=== PATIENT | male | born 1970 | race Caucasian/White ===

== ENCOUNTER → 2016-10-07 | Emergency (ER) | payer BC, OTHER ==
[~2016-10-07] VITALS: Ht 175.3 cm; Wt 76.0 kg
[~2016-10-07] MED LIST: DIAZ-90 PO; DIAZEPAM 5 MG/ML SYG IM ONE; KETOROLAC 15 MG INJ IM STA; NAPR-260 PO
[2016-10-07 21:05] VITALS: Ht 175.3 cm; Wt 76.0 kg
[2016-10-07 22:04] LABS: URINE BLOOD (Dip) POC Negative (NEGATIVE)
--- NOTE | 2016-10-07 23:31 | ERD ---
ER Documentation Chief Complaint Date/Time DATE: 10/07/16 TIME: 23:28 Chief Complaint INCREASE LT LOWER BACK PAIN RADIATING TO LT LEG X2 WEEKS HPI This pleasant 45-year-old male patient presents to emergency department with a week history of low back. Patient reports history of 3 bulging disks, recent manual labor lifting boxes and moving objects last week resulted in spasm. Patient reports treating conservatively with rest, ice and ibuprofen states she usually symptoms improve after 3-4 days. Patient reports now pain is worse than it was 5 days ago he is having pain radiating down his left lumbar to his left thigh. Patient denies any alteration in bowel or bladder, is ambulating gingerly with limp, pain is worse with movement, twisting, rising from a seated position. Patient reports difficulty finding position of comfort for sleep. ROS All systems reviewed and are negative except as per history of present illness. Allergies Allergies: Coded Allergies: No Known Drug Allergies (Verified Allergy, Unknown, 10/07/16) PMhx/Soc Medical and Surgical Hx: pt denies Medical Hx, pt denies Surgical Hx Hx Alcohol Use: No Hx Substance Use: No Hx Tobacco Use: No Smoking Status: Never smoker Physical Exam Vitals Vital Signs Date Time Temp Pulse Resp B/P Pulse Ox O2 Delivery O2 Flow Rate FiO2 10/07/16 21:05 97.6 86 20 128/79 99 Vitals stable, triage notes reviewed Physical Exam Const: [] Head: Atraumatic Eyes: Normal Conjunctiva ENT: Normal External Ears, Nose and Mouth. Neck: Full range of motion..~ No meningismus. Resp: Clear to auscultation bilaterally Cardio: Regular rate and rhythm, no murmurs Abd: Soft, non tender, non distended. Normal bowel sounds Skin: No petechiae or rashes Back: No midline or flank tenderness Ext: No cyanosis, or edema Neur: Awake and alert Psych: Normal Mood and Affect Results 24 hrs Laboratory Tests Test 10/07/16 22:08 Bedside Urine pH (LAB) 5.5 Bedside Urine Protein (LAB) Negative Bedside Urine Glucose (UA) Negative Bedside Urine Ketones (LAB) Negative Bedside Urine Blood Negative Bedside Urine Nitrite (LAB) Negative Bedside Urine Leukocyte Esterase (L Negative Current Medications Medications (Trade) Dose Ordered Sig/Yumiko Route PRN Reason Start Time Stop Time Status Last Admin Dose Admin Ketorolac Tromethamine (Toradol) 15 mg ONCE STAT IM 10/07/16 21:50 10/07/16 21:54 DC 10/07/16 22:05 Diazepam (Valium) 5 mg ONCE ONCE IM 10/07/16 22:00 10/07/16 22:01 DC 10/07/16 22:05 Urinalysis negative for microscopic hematuria, nitrates, or leukocytosis- unremarkable urinalysis Procedures/MDM PROCEDURE: Lumbar spine. CLINICAL INDICATION: Low back pain. TECHNIQUE: Three views including AP, lateral and cone-down lateral view of the lumbar spine were obtained. COMPARISON: None. FINDINGS: There is no acute fracture or subluxation. Lumbar vertebral body heights and alignment are within normal limits. Intervertebral disk spaces are within normal limits. The posterior elements are unremarkable. An angled screw is seen within the left pelvis. IMPRESSION: No evidence of fracture or subluxation. .Colin Pope MD, MD Date Time Electronically viewed and signed by .Colin Pope MD, on 10/07/2016 23:50 This 45-year-old male patient presents to the emergency department for evaluation of back pain. Symptoms started over a week ago after manual labor. History of bulging disc unsure which vertebrae. Patient denies pain is chronic , reports when he gets back pain usually improved with rest, ice and ibuprofen. Patient reports symptoms this time are worse than they were 5 days ago pain is radiating down left leg. Low suspicion for cauda equina,spinal mass compression fracture or other pathologic fracture, patient pain treated with Toradol, Valium, lumbar series documents no evidence of subluxation, patient will be discharged home with Naprosyn 500 mg twice daily 10 days, Valium 1 tab p.o. every 8 hours as needed myopathy follow-up with primary care physician for possible referral for physical therapy, rest, ice, return to emergency department for bladder incontinence, stool incontinence, difficulty ambulating or moving lower extremities. I feel the patient is stable for discharge at this time. I have discussed results, examination findings, the treatment plan with the patient and family present prior to discharge. Indications for emergent reevaluation, side effects of medication were also discussed. All questions were answered. Patient verbalizes understanding and agrees with plan of care. Departure Diagnosis: Primary Impression: Lumbar back pain Chronicity: acute Back pain laterality: left Sciatica presence: with sciatica Sciatica laterality: sciatica of left side Qualified Code: M54.42 - Acute left-sided low back pain with left-sided sciatica Condition: Good Patient Instructions: Back Pain (Acute Or Chronic) Additional Instructions: Thank you for for coming to [facility] for your care today. Please ask your nurse or provider if you have questions about your care today and do not leave until all your questions have been answered. Please use any medications given as directed and follow-up with your doctor (or the doctor you were referred to) in the next 2-3 days. If you do not have a primary care doctor you may follow up at the [facility] (listed below). You may also use motrin and tylenol as needed for fever and/or pain unless instructed otherwise by your provider or nurse. Indications for more urgent follow-up have been discussed, but you may return to the Emergency Department at ANY time for any worrisome or worsening symptoms. If you have abdominal pain, please know that no test or exam you received is perfect and you should follow up within 8 hours for continued pain. If you had any imaging studies today, such as an X-Ray or CT Scan, these studies will be reviewed later by a radiologist. You will be called if there are important findings that were not identified today, so make sure the contact information you provided at registration is correct. If you received any narcotic pain control medicine today, such as Vicodin, Morphine or Dilaudid, your coordination and judgment may be affected for a number of hours. Please do not drive or operate heavy machinery, and you may want someone to assist you at home. If you were given a prescription for narcotic medication, be aware that it is very addictive- use sparingly and only if necessary. DEANA DAVISON Oct 07, 2016 23:31
--- NOTE | 2016-10-07 23:51 | RADRPT ---
PROCEDURE: Lumbar spine. CLINICAL INDICATION: Low back pain. TECHNIQUE: Three views including AP, lateral and cone-down lateral view of the lumbar spine were obtained. COMPARISON: None. FINDINGS: There is no acute fracture or subluxation. Lumbar vertebral body heights and alignment are within n ormal limits. Intervertebral disk spaces are within normal limits. The posterior elements are unre markable. An angled screw is seen within the left pelvis. IMPRESSION: No evidence of fracture or subluxation. .Colin Pope MD, Date Time Electronically viewed and signed by .Colin Pope MD, MD on 10/07/2016 23:50 .T/
[2016-10-08 00:13] VITALS: BP 108/71; PULSE 73; RESP 20; TEMP 97.6
== END | disposition home or self-care (01) ==
LOC: FTE 21:00
DX: M54.42 Lumbago with sciatica, left side (principal)
CPT/HCPCS: 72100; 81003; 96372; 99284; J1885; J3360

== ENCOUNTER 2018-10-07 20:31 | Inpatient (IN) | payer BC ==
[~2018-10-07] VITALS: Ht 175.3 cm; Wt 75.0 kg
[~2018-10-07 20:31] MED LIST changes: -DIAZ-90 PO; +DIAZ5TAB PO; -DIAZEPAM 5 MG/ML SYG IM ONE; -KETOROLAC 15 MG INJ IM STA; -NAPR-260 PO; +NAPR-985 PO
[2018-10-07] MEDS ORDERED: SOD CHLORIDE 0.9% 1,000 ML IV STA (22:10)
--- NOTE | 2018-10-07 22:29 | ERD ---
ER Documentation Chief Complaint Chief Complaint C/O GENERALIZED AP X3 DAYS WORSE TO RLQ, DIARRHEA X2 DAYS HPI 47-year-old male presenting with complaints of right lower quadrant abdominal pain. For the past 3 days, he has had generalized "tightness" of his entire abdomen that has been constant, with no alleviating factors. Worse with eating. No associated vomiting but he has had some associated nausea and chills. He has had loose bowel movements, about 2 a day. Today he has not had any bowel movements. No dysuria or hematuria. Today he was concerned because when he was pressing on his abdomen, the pain was worse in the right lower quadrant. He was advised to come to the ER by a friend ROS All systems reviewed and are negative except as per history of present illness. Medications Home Meds Active Scripts Diazepam* (Valium*) 5 Mg Tablet, 5 MG PO Q8, #10 TAB Prov:SAMAN,DEANA 10/08/16 Naproxen* (Naprosyn*) 500 Mg Tablet, 500 MG PO BID PRN for PAIN AND/OR INFLAMMATION, #30 TAB Prov:SAMAN,DEANA 10/08/16 Allergies Allergies: Coded Allergies: No Known Drug Allergies (Verified Allergy, Unknown, 10/07/16) PMhx/Soc Medical and Surgical Hx: pt denies Medical Hx, pt denies Surgical Hx History of Surgery: No Anesthesia Reaction: No Hx Neurological Disorder: No Hx Respiratory Disorders: No Hx Cardiac Disorders: No Hx Psychiatric Problems: No Hx Miscellaneous Medical Probl: No Hx Alcohol Use: No Hx Substance Use: No Hx Tobacco Use: No Smoking Status: Never smoker FmHx Father has prostate cancer Family History: No diabetes Physical Exam Vitals Vital Signs Date Temp Pulse Resp B/P (MAP) Pulse Ox O2 O2 Flow FiO2 Time Delivery Rate 10/08/18 98.5 68 16 104/64 100 Room Air 01:44 (77) 10/07/18 97.8 73 20 124/58 100 21:20 (80) Physical Exam Const: No acute distress Head: Atraumatic Eyes: Normal Conjunctiva ENT: Normal External Ears, Nose and Mouth. Neck: Full range of motion. No meningismus. Resp: Clear to auscultation bilaterally Cardio: Regular rate and rhythm, no murmurs Abd: Soft, diffuse discomfort with palpation. Tenderness to deep palpation in the right lower quadrant at McBurney's point with no rebound or guarding. non distended. Normal bowel sounds Skin: No petechiae or rashes Back: No midline or flank tenderness Ext: No cyanosis, or edema Neur: Awake and alert Psych: Normal Mood and Affect Result Diagram: 10/07/18215410/07/182154 Results 24 hrs Laboratory Tests Test 10/07/18 21:55 White Blood Count 6.0 10^3/ul Red Blood Count 4.38 10^6/ul Hemoglobin 12.4 g/dl Hematocrit 37.3 % Mean Corpuscular Volume 85.2 fl Mean Corpuscular Hemoglobin 28.3 pg Mean Corpuscular Hemoglobin Concent 33.2 g/dl Red Cell Distribution Width 13.4 % Platelet Count 298 10^3/UL Mean Platelet Volume 12.1 fl Immature Granulocytes % 0.200 % Neutrophils % 36.6 % Lymphocytes % 49.0 % Monocytes % 11.1 % Eosinophils % 2.3 % Basophils % 0.8 % Nucleated Red Blood Cells % 0.0 /100WBC Immature Granulocytes # 0.010 10^3/ul Neutrophils # 2.2 10^3/ul Lymphocytes # 3.0 10^3/ul Monocytes # 0.7 10^3/ul Eosinophils # 0.1 10^3/ul Basophils # 0.1 10^3/ul Nucleated Red Blood Cells # 0.0 10^3/ul Sodium Level 142 mmol/L Potassium Level 4.5 mmol/L Chloride Level 100 mmol/L Carbon Dioxide Level 33 mmol/L Anion Gap 9 Blood Urea Nitrogen 14 mg/dl Creatinine 1.05 mg/dl Est Glomerular Filtrat Rate mL/min > 60 mL/min Glucose Level 89 mg/dl Calcium Level 9.5 mg/dl Total Bilirubin 0.6 mg/dl Direct Bilirubin 0.00 mg/dl Indirect Bilirubin 0.6 mg/dl Aspartate Amino Transf (AST/SGOT) 35 IU/L Alanine Aminotransferase (ALT/SGPT) 24 IU/L Alkaline Phosphatase 59 IU/L Total Protein 8.2 g/dl Albumin 4.6 g/dl Globulin 3.60 g/dl Albumin/Globulin Ratio 1.27 Lipase 107 U/L Current Medications Medications Dose Sig/Yumiko Start Time Status Last (Trade) Ordered Route PRN Stop Time Admin Dose Reason Admin Sodium 1,000 ml @ Q1H STAT 10/07/18 DC 10/07/18 Chloride 1,000 mls/hr IV 22:10 10/07/18 22:12 23:09 Simethicone 160 mg ONCE ONCE 10/07/18 DC 10/07/18 (Mylicon) PO 22:30 10/07/18 23:15 22:31 Piperacillin 100 ml @ ONCE ONCE 10/08/18 DC 10/08/18 Sod/ 200 mls/hr IVPB 01:00 10/08/18 01:08 Tazobactam 01:29 Sod Ondansetron 4 mg BRIDGE ORDER 10/08/18 HCl (Zofran PRN IV 01:30 10/09/18 Inj) NAUSEA/VOMITI 01:29 NG 650 mg ER BRIDGE 10/08/18 Acetaminophen PRN PO 01:30 10/09/18 (Tylenol .MILD PAIN 01:29 Tab) 1-3 OR TEMP 1,000 ml @ Q10H IV 10/08/18 Dextrose/Sodi 100 mls/hr 01:06 um Chloride IV Flush 3 ml PER 10/08/18 (NS 3 ml) PROTOCOL IV 01:30 Ondansetron 4 mg Q6H PRN 10/08/18 HCl (Zofran IV 01:30 Inj) NAUSEA/VOMITI NG Morphine 3 mg Q4H PRN 10/08/18 Sulfate IV .SEVERE 01:30 (morphine) PAIN 4-10 Piperacillin 100 ml @ ONCE ONCE 10/08/18 DC Sod/ 200 mls/hr IVPB 01:30 10/08/18 Tazobactam 01:30 Sod Procedures/MDM EMERGENT LABS AND DIAGNOSTIC STUDIES: Lab Results above were reviewed and interpreted by me. CBC: no anemia or evidence of infection CMP: No evidence of clinically significant electrolyte abnormality, acidosis, renal failure, hypoglycemia, liver disease, or biliary obstruction Lipase: no evidence of pancreatitis Radiology Results as interpreted by Radiology below were reviewed by Natalie Cantor MD: CT abdomen and pelvis shows evidence of acute appendicitis Initial Nursing notes reviewed. Previous Medical Records requested via the Electronic Health Record. EMERGENCY DEPARTMENT COURSE / MEDICAL DECISION MAKING: Patient is presenting with right lower quadrant abdominal pain but is afebrile and hemodynamically stable. Given his right lower quadrant tenderness, CT of the abdomen and pelvis were done. Labs were unremarkable but the CT did show evidence of acute appendicitis. I discussed this with the surgeon on-call. He was started on IV antibiotics and will be admitted for further work-up and management. Accepting Care Team: Current data and ongoing care discussed. Time: Time of admission Primary Provider: Consulting: Dr. Yost Outstanding Data: none Departure Diagnosis: Primary Impression: Acute appendicitis Acute appendicitis type: with localized peritonitis Appendicitis gangrene presence: without gangrene Appendicitis perforation presence: without perforation Appendicitis abscess presence: without abscess Qualified Codes: K35.30 - Acute appendicitis with localized peritonitis, without perforation or gangrene Condition: PROSPER Ruiz MD Oct 07, 2018 22:29
[2018-10-08] VITALS (20 sets, daily range): BP systolic 103–168; BP diastolic 58–84; PULSE 68–117; RESP 15–20; Ht 175.3 cm; Wt 75.0 kg
[2018-10-08] MEDS ORDERED: PIPER-TAZO 3.375 GM IV (PMX) 100 ML IVPB ONE ×2 (01:00→01:30)
[2018-10-08] MEDS ORDERED: ACETAMINOPHEN 325 MG TAB PO PRN ×2 (01:30→18:00)
[2018-10-08] MEDS ORDERED: NACL 0.9% 3 ML SYG IV SCH (01:30)
[2018-10-08] MEDS ORDERED: ONDANSETRON 4 MG INJ IV PRN ×3 (01:30→16:30)
[2018-10-08] MEDS ORDERED: morphine 2 MG INJ IV PRN (01:30)
[2018-10-08] MEDS ORDERED: FINA1TAB16 PO (02:59)
[2018-10-08] MEDS: DEXTROSE 5%-0.45% NACL 1,000 ML IV SCH ×2 (03:12→11:06)
--- NOTE | 2018-10-08 06:06 | HP ---
Date/Time of Note Date/Time of Note DATE: 10/08/18 TIME: 06:05 Assessment/Plan VTE [place] [facility] [place] risk: 1 SCD applied (from Ns): Yes Pharmacological prophylaxis: NA/contraindicated Pharm contraindication: other (Awaiting surgical eval) Lines/Catheters IV [facility]ter Type (from [facility]): Peripheral IV Assessment/Plan Assessment/Plan 47-year-old male presents with abdominal pain secondary to acute appendicitis PLAN -Keep n.p.o. with IV fluid -IV antibiotic -Pain management -Awaiting surgical eval Result Diagram: 10/08/18 0444 10/07/185 Results 24hrs Laboratory Tests Test 10/07/18 21:55 10/08/18 04:44 White Blood Count 6.0 5.4 Red Blood Count 4.38 L 4.11 L Hemoglobin 12.4 L 11.5 L Hematocrit 37.3 L 34.9 L Mean Corpuscular Volume 85.2 84.9 Mean Corpuscular Hemoglobin 28.3 L 28.0 L Mean Corpuscular Hemoglobin Concent 33.2 33.0 Red Cell Distribution Width 13.4 13.6 Platelet Count 298 264 Mean Platelet Volume 12.1 H 12.4 H Immature Granulocytes % 0.200 0.200 Neutrophils % 36.6 L 38.6 L Lymphocytes % 49.0 46.0 Monocytes % 11.1 H 11.5 H Eosinophils % 2.3 2.6 Basophils % 0.8 1.1 Nucleated Red Blood Cells % 0.0 0.0 Immature Granulocytes # 0.010 0.010 Neutrophils # 2.2 2.1 Lymphocytes # 3.0 H 2.5 Monocytes # 0.7 0.6 Eosinophils # 0.1 0.1 Basophils # 0.1 0.1 Nucleated Red Blood Cells # 0.0 0.0 Sodium Level 142 Potassium Level 4.5 Chloride Level 100 Carbon Dioxide Level 33 H Anion Gap 9 Blood Urea Nitrogen 14 Creatinine 1.05 Est Glomerular Filtrat Rate mL/min > 60 Glucose Level 89 Calcium Level 9.5 Total Bilirubin 0.6 Direct Bilirubin 0.00 Indirect Bilirubin 0.6 Aspartate Amino Transf (AST/SGOT) 35 Alanine Aminotransferase (ALT/SGPT) 24 Alkaline Phosphatase 59 Total Protein 8.2 H Albumin 4.6 Globulin 3.60 H Albumin/Globulin Ratio 1.27 Lipase 107 HPI/ROS Admit Date/Time Admit Date/Time Oct 08, 2018 at 01:03 Hx of Present Illness Patient is a 47-year-old male with no significant past medical history presented to ER complaining of abdominal pain. Pain is been going on for about 3 days and mainly located in the right lower quadrant area. He said he had few episodes of right lower quadrant abdominal pain for the past 2 months. At that time he was just taking [id number] pain medication and did not seek help. When he presented to ER today, CT shows acute appendicitis. No fever and WBC WNL. PMH/Family/Social Past Medical History Medical History: other (See HPI) Medications Current Medications Ondansetron HCl (Zofran Inj) 4 mg BRIDGE ORDER PRN IV NAUSEA/VOMITING; Start 10/08/18 at 01:30; Stop 10/09/18 at 01:29 Acetaminophen (Tylenol Tab) 650 mg ER BRIDGE PRN PO .MILD PAIN 1-3 OR TEMP; Start 10/08/18 at 01:30; Stop 10/09/18 at 01:29 Dextrose/Sodium Chloride 1,000 ml @ 100 mls/hr Q10H IV Last administered on 10/08/18at 03:12; Admin Dose 100 MLS/HR; Start 10/08/18 at 01:06 IV Flush (NS 3 ml) 3 ml PER PROTOCOL IV ; Start 10/08/18 at 01:30 Ondansetron HCl (Zofran Inj) 4 mg Q6H PRN IV NAUSEA/VOMITING; Start 10/08/18 at 01:30 Morphine Sulfate (morphine) 3 mg Q4H PRN IV .SEVERE PAIN 4-10; Start 10/08/18 at 01:30 Coded Allergies: No Known Drug Allergies (Verified Allergy, Unknown, 10/07/16) Past Surgical History Past Surgical Hx: other (See HPI) Family History Significant Family History: no pertinent family hx Social History Alcohol Use: none Smoking Status: Never smoker Drug Use: none Exam/Review of Systems Vital Signs Vitals Vital Signs Date Temp Pulse Resp B/P (MAP) Pulse Ox O2 O2 Flow FiO2 Time Delivery Rate 10/08/18 97.9 71 18 124/70 100 02:50 (88) 10/08/18 Room Air 02:30 Exam Constitutional: alert, oriented, well developed Head: normocephalic, atraumatic Eyes: EOMI, PERRL Respiratory: clear to auscultation, normal air movement Cardiovascular: regular rate and rhythm, nl pulses Gastrointestinal: soft, other (Right lower quadrant tenderness to palpation) Extremities: normal pulses SLIM PARNELL MD Oct 08, 2018 06:06
[2018-10-08] MEDS: PIPER-TAZO 3.375 GM IV (PMX) 100 ML IVPB SCH ×3 (09:03→18:16)
--- NOTE | 2018-10-08 16:04 | CONS ---
Assessment/Plan Assessment/Plan Problems: (1) Acute appendicitis Status: Acute Qualifiers: Assessment/Plan (Daily) Acute appendicitis for laparoscopic appendectomy. Clinical picture is consistent with acute appendicitis in spite of normal white blood count. I discussed with the patient possibility that I will find a normal appendix. We both agreed that the most probable is acute appendicitis and we both agreed to treated surgically. We discussed risks and benefits were discussed possible side effects, possible complications including but not limited to bleeding, infection, injury to other organs, anesthesia complication, patient understood risk and benefits and wished to proceed. Consultation Date/Type/Reason Admit Date/Time Oct 08, 2018 at 01:03 Date of Consultation: Oct 08, 2018 Type of Consult Surgical Reason for Consultation Acute appendicitis Date/Time of Note DATE: 10/08/18 TIME: 16:01 Hx of Present Illness 47-year-old male presenting with complaints of right lower quadrant abdominal pain. For the past 3 days, he has had generalized "tightness" of his entire abdomen that has been constant, with no alleviating factors. Worse with eating. No associated vomiting but he has had some associated nausea and chills. He has had loose bowel movements, about 2 a day. Today he has not had any bowel movements. No dysuria or hematuria. Today he was concerned because when he was pressing on his abdomen, the pain was worse in the right lower quadrant. He was advised to come to the ER by a friend Constitutional: no complaints, improved Gastrointestinal: pain, diarrhea, nausea Past Medical History Medical History: no pertinent history, other (See HPI) Home Meds Reported Medications Finasteride* (Finasteride*) 1 Mg Tablet, 1 MG PO HS, TAB 10/08/18 Discontinued Scripts Diazepam* (Valium*) 5 Mg Tablet, 5 MG PO Q8, #10 TAB Prov:SAMAN,DEANA 10/08/16 Naproxen* (Naprosyn*) 500 Mg Tablet, 500 MG PO BID PRN for PAIN AND/OR INFLAMMATION, #30 TAB Prov:SAMAN,DEANA 10/08/16 Medications Current Medications Ondansetron HCl (Zofran Inj) 4 mg BRIDGE ORDER PRN IV NAUSEA/VOMITING; Start 10/08/18 at 01:30; Stop 10/09/18 at 01:29 Acetaminophen (Tylenol Tab) 650 mg ER BRIDGE PRN PO .MILD PAIN 1-3 OR TEMP; Start 10/08/18 at 01:30; Stop 10/09/18 at 01:29 Dextrose/Sodium Chloride 1,000 ml @ 100 mls/hr Q10H IV Last administered on 10/08/18at 03:12; Admin Dose 100 MLS/HR; Start 10/08/18 at 01:06 IV Flush (NS 3 ml) 3 ml PER PROTOCOL IV ; Start 10/08/18 at 01:30 Ondansetron HCl (Zofran Inj) 4 mg Q6H PRN IV NAUSEA/VOMITING; Start 10/08/18 at 01:30 Morphine Sulfate (morphine) 3 mg Q4H PRN IV .SEVERE PAIN 4-10; Start 10/08/18 at 01:30 Piperacillin Sod/ Tazobactam Sod 100 ml @ 200 mls/hr Q6 IVPB Last administered on 10/08/18at 14:16; Admin Dose 200 MLS/HR; Start 10/08/18 at 09:00 Allergies: Coded Allergies: No Known Drug Allergies (Verified Allergy, Unknown, 10/07/16) Past Surgical History Past Surgical Hx: no surgical history, other (See HPI) Family History Significant Family History: no pertinent family hx Social History Alcohol Use: none Smoking Status: Never smoker Drug Use: none Exam/Review of Systems Exam Vitals Vital Signs Date Temp Pulse Resp B/P (MAP) Pulse Ox O2 O2 Flow FiO2 Time Delivery Rate 10/08/18 98.6 77 18 122/67 Room Air 15:35 (85) 10/08/18 99 13:39 Intake and Output 10/07/18 10/07/18 10/08/18 1515:00 23:00 07:00 IntakeIntake Total 400 ml BalanceBalance 400 ml Constitutional: alert, oriented, well developed Psych: no complaints, nl mood/affect Head: normocephalic, atraumatic Eyes: nl conjunctiva, EOMI, nl lids, nl sclera, PERRL ENMT: nl external ears & nose, nl lips & teeth, nl nasal mucosa & septum Neck: supple, non-tender Respiratory: clear to auscultation, normal air movement Cardiovascular: regular rate and rhythm, nl pulses Gastrointestinal: soft, nl liver, spleen, other (Right lower quadrant tenderness on deep palpation with a rebound, positive Rovsing sign.) Musculoskeletal: nl extremities to inspection, nl gait and stance Extremities: normal pulses Neurological: [employer] II-XII intact, nl mental status, nl speech, nl strength Skin: nl turgor; No rash or lesions Lymph: nl lymph nodes Results Result Diagram: 10/08/18 0444 10/08/187 Results 24hrs Laboratory Tests Test 10/07/18 21:55 10/08/18 04:44 10/08/18 04:47 White Blood Count 6.0 5.4 Red Blood Count 4.38 L 4.11 L Hemoglobin 12.4 L 11.5 L Hematocrit 37.3 L 34.9 L Mean Corpuscular Volume 85.2 84.9 Mean Corpuscular Hemoglobin 28.3 L 28.0 L Mean Corpuscular Hemoglobin Concent 33.2 33.0 Red Cell Distribution Width 13.4 13.6 Platelet Count 298 264 Mean Platelet Volume 12.1 H 12.4 H Immature Granulocytes % 0.200 0.200 Neutrophils % 36.6 L 38.6 L Lymphocytes % 49.0 46.0 Monocytes % 11.1 H 11.5 H Eosinophils % 2.3 2.6 Basophils % 0.8 1.1 Nucleated Red Blood Cells % 0.0 0.0 Immature Granulocytes # 0.010 0.010 Neutrophils # 2.2 2.1 Lymphocytes # 3.0 H 2.5 Monocytes # 0.7 0.6 Eosinophils # 0.1 0.1 Basophils # 0.1 0.1 Nucleated Red Blood Cells # 0.0 0.0 Sodium Level 142 143 Potassium Level 4.5 4.0 Chloride Level 100 106 Carbon Dioxide Level 33 H 31 Anion Gap 9 6 Blood Urea Nitrogen 14 11 Creatinine 1.05 1.01 Est Glomerular Filtrat Rate mL/min > 60 > 60 Glucose Level 89 96 Calcium Level 9.5 8.6 Total Bilirubin 0.6 0.9 Direct Bilirubin 0.00 0.00 Indirect Bilirubin 0.6 0.9 Aspartate Amino Transf (AST/SGOT) 35 29 Alanine Aminotransferase (ALT/SGPT) 24 22 Alkaline Phosphatase 59 46 Total Protein 8.2 H 6.7 # Albumin 4.6 3.7 Globulin 3.60 H 3.00 Albumin/Globulin Ratio 1.27 1.23 Lipase 107 Medications Medication Current Medications Ondansetron HCl (Zofran Inj) 4 mg BRIDGE ORDER PRN IV NAUSEA/VOMITING; Start 10/08/18 at 01:30; Stop 10/09/18 at 01:29 Acetaminophen (Tylenol Tab) 650 mg ER BRIDGE PRN PO .MILD PAIN 1-3 OR TEMP; Start 10/08/18 at 01:30; Stop 10/09/18 at 01:29 Dextrose/Sodium Chloride 1,000 ml @ 100 mls/hr Q10H IV Last administered on 10/08/18at 03:12; Admin Dose 100 MLS/HR; Start 10/08/18 at 01:06 IV Flush (NS 3 ml) 3 ml PER PROTOCOL IV ; Start 10/08/18 at 01:30 Ondansetron HCl (Zofran Inj) 4 mg Q6H PRN IV NAUSEA/VOMITING; Start 10/08/18 at 01:30 Morphine Sulfate (morphine) 3 mg Q4H PRN IV .SEVERE PAIN 4-10; Start 10/08/18 at 01:30 Piperacillin Sod/ Tazobactam Sod 100 ml @ 200 mls/hr Q6 IVPB Last administered on 10/08/18at 14:16; Admin Dose 200 MLS/HR; Start 10/08/18 at 09:00 KALLI LORENZANA MD Oct 08, 2018 16:04
[2018-10-08] MEDS ORDERED: BUPIVACAINE 0.5%/EPI (SDV) 30 ML INJ ONE (16:09)
--- NOTE | 2018-10-08 16:26 | PREAC ---
Date/Time of Note Date/Time of Note DATE: 10/08/18 TIME: 16:25 Anesthesia Eval and Record Evaluation Time Pre-Procedure Interview DATE: 10/08/18 TIME: 16:25 Age 47 Sex male NPO: 8 hrs Preoperative diagnosis acute appendicitis Planned procedure laparoscopic appendectomy Past Medical History Past Medical History: None Surgery & Anesthesia Issues No known issue Meds Anticoagulation: No Beta Sara within 24 hr: No Reason Beta Sara not given: Pt. not on B-Sara Reported Medications Finasteride* (Finasteride*) 1 Mg Tablet, 1 MG PO HS, TAB 10/08/18 Discontinued Scripts Diazepam* (Valium*) 5 Mg Tablet, 5 MG PO Q8, #10 TAB Prov:SAMAN,DEANA 10/08/16 Naproxen* (Naprosyn*) 500 Mg Tablet, 500 MG PO BID PRN for PAIN AND/OR INFLAMMATION, #30 TAB Prov:SAMAN,DEANA 10/08/16 Current Medications Ondansetron HCl (Zofran Inj) 4 mg BRIDGE ORDER PRN IV NAUSEA/VOMITING; Start 10/08/18 at 01:30; Stop 10/09/18 at 01:29 Acetaminophen (Tylenol Tab) 650 mg ER BRIDGE PRN PO .MILD PAIN 1-3 OR TEMP; Start 10/08/18 at 01:30; Stop 10/09/18 at 01:29 Dextrose/Sodium Chloride 1,000 ml @ 100 mls/hr Q10H IV Last administered on 10/08/18at 03:12; Admin Dose 100 MLS/HR; Start 10/08/18 at 01:06 IV Flush (NS 3 ml) 3 ml PER PROTOCOL IV ; Start 10/08/18 at 01:30 Ondansetron HCl (Zofran Inj) 4 mg Q6H PRN IV NAUSEA/VOMITING; Start 10/08/18 at 01:30 Morphine Sulfate (morphine) 3 mg Q4H PRN IV .SEVERE PAIN 4-10; Start 10/08/18 at 01:30 Piperacillin Sod/ Tazobactam Sod 100 ml @ 200 mls/hr Q6 IVPB Last administered on 10/08/18at 14:16; Admin Dose 200 MLS/HR; Start 10/08/18 at 09:00 Meds reviewed: Yes Allergies Coded Allergies: No Known Drug Allergies (Verified Allergy, Unknown, 10/07/16) Allergies Reviewed: Yes Labs/Studies Labs Reviewed: Reviewed by anesthesiologist Result Diagram: 10/08/18 0444 10/08/18 0447 Laboratory Tests 10/08/18 04:44 10/08/18 04:47 test: N/A Pre-procedure Exam Last vitals Vital Signs Date Temp Pulse Resp B/P (MAP) Pulse Ox O2 O2 Flow FiO2 Time Delivery Rate 10/08/18 98.6 77 18 122/67 Room Air 15:35 (85) 10/08/18 99 13:39 Airway: Adequate mouth opening, Adequate thyromental dist Mallampati: Mallampati II Teeth: Normal Lung: Normal Heart: Normal ASA Physical Status ASA physical status: 2 Emergency: None Planned Anesthetic General/MAC: ETT Nerve block: TAP (bilateral) Planned Pain Management Single shot nerve block, Parenteral pain med Pre-operative Attestations Prior to commencing anesthesia and surgery, the patient was re-evaluated, there was verification of: *The patient's identity *The results of appropriate recent lab work and preoperative vital signs *The above evaluation not changing prior to induction *Anesthetic plan, risk benefits, alternative and complications discussed with patient/family; questions answered; patient/family understands, accepts and wishes to proceed. ANGEL BECKHAM MD Oct 08, 2018 16:26
[2018-10-08] MEDS ORDERED: PROCHLORPERAZINE 10 MG INJ IV PRN (16:30)
[2018-10-08] MEDS ORDERED: HYDROmorphONE 1 MG/5 ML IV SYRINGE IV PRN ×3 (16:30)
[2018-10-08] MEDS ORDERED: MEPERIDINE 25 MG INJ IV PRN (16:30)
[2018-10-08] MEDS ORDERED: DIPHENHYDRAMINE 50 MG INJ IV PRN (16:30)
[2018-10-08] MEDS ORDERED: SEVOFLURANE 15 MIN ONE (16:30)
[2018-10-08] MEDS ORDERED: FENTAnyl 50 MCG/ML VIAL IV PRN ×3 (16:30)
[2018-10-08] MEDS ORDERED: OXYCODONE/ACETAMINOPHEN (5/325) TAB PO PRN (16:30)
--- NOTE | 2018-10-08 16:34 | PN ---
Date/Time of Note Date/Time of Note DATE: 10/08/18 TIME: 16:34 Objective Vitals Vital Signs Date Temp Pulse Resp B/P (MAP) Pulse Ox O2 O2 Flow FiO2 Time Delivery Rate 10/08/18 98.6 77 18 122/67 Room Air 15:35 (85) 10/08/18 99 13:39 Intake and Output 10/07/18 10/07/18 10/08/18 1515:00 23:00 07:00 IntakeIntake Total 400 ml BalanceBalance 400 ml Results Result Diagram: 10/08/18 0444 10/08/18 0447 Medications Medications Current Medications Ondansetron HCl (Zofran Inj) 4 mg BRIDGE ORDER PRN IV NAUSEA/VOMITING; Start 10/08/18 at 01:30; Stop 10/09/18 at 01:29 Acetaminophen (Tylenol Tab) 650 mg ER BRIDGE PRN PO .MILD PAIN 1-3 OR TEMP; Start 10/08/18 at 01:30; Stop 10/09/18 at 01:29 Dextrose/Sodium Chloride 1,000 ml @ 100 mls/hr Q10H IV Last administered on 10/08/18at 03:12; Admin Dose 100 MLS/HR; Start 10/08/18 at 01:06 IV Flush (NS 3 ml) 3 ml PER PROTOCOL IV ; Start 10/08/18 at 01:30 Ondansetron HCl (Zofran Inj) 4 mg Q6H PRN IV NAUSEA/VOMITING; Start 10/08/18 at 01:30 Morphine Sulfate (morphine) 3 mg Q4H PRN IV .SEVERE PAIN 4-10; Start 10/08/18 at 01:30 Piperacillin Sod/ Tazobactam Sod 100 ml @ 200 mls/hr Q6 IVPB Last administered on 10/08/18at 14:16; Admin Dose 200 MLS/HR; Start 10/08/18 at 09:00 Hydromorphone HCl (Dilaudid) 0.2 mg PACU PRN IV MILD PAIN 1-3; Start 10/08/18 at 16:30; Stop 10/08/18 at 22:30 Hydromorphone HCl (Dilaudid) 0.4 mg PACU PRN IV MOD PAIN 4-6; Start 10/08/18 at 16:30; Stop 10/08/18 at 22:30 Hydromorphone HCl (Dilaudid) 0.6 mg PACU PRN IV SEVERE PAIN 7-10; Start 10/08/18 at 16:30; Stop 10/08/18 at 22:30 Fentanyl (Sublimaze) 25 mcg PACU ORDER PRN IV MILD PAIN 1-3; Start 10/08/18 at 16:30; Stop 10/08/18 at 22:30 Fentanyl (Sublimaze) 50 mcg PACU ORDER PRN IV MOD PAIN 4-6; Start 10/08/18 at 16:30; Stop 10/08/18 at 22:30 Fentanyl (Sublimaze) 75 mcg PACU ORDER PRN IV SEVERE PAIN 7-10; Start 10/08/18 at 16:30; Stop 10/08/18 at 22:30 Oxycodone/ Acetaminophen (Percocet (5/ 325)) 1 tab PACU ORDER PRN PO .PAIN 1-5; Start 10/08/18 at 16:30; Stop 10/08/18 at 22:30 Ondansetron HCl (Zofran Inj) 4 mg PACU ORDER PRN IV NAUSEA/VOMITING; Start 10/08/18 at 16:30; Stop 10/08/18 at 22:30 Prochlorperazine (Compazine Inj) 5 mg PACU ORDER PRN IV NAUSEA/VOMITING; Start 10/08/18 at 16:30; Stop 10/08/18 at 22:30 Meperidine HCl (Demerol) 25 mg PACU ORDER PRN IV .RIGORS; Start 10/08/18 at 16:30; Stop 10/08/18 at 22:30 Diphenhydramine HCl (Benadryl) 25 mg PACU ORDER PRN IV .PRURITUS; Start 10/08/18 at 16:30; Stop 10/08/18 at 22:30 VTE Prophylaxis Risk score (from Nsg)>0 risk: 1 SCD applied (from Nsg): Yes Lines/Catheters IV Catheter Type: Miranda in Place: No Assessment/Plan Hospital Course This is a short progress note as H&P was done earlier today. Patient admitted for appendicitis. Patient to undergo laparoscopic appendectomy per general surgeon. Continue IV anti-biotics and n.p.o. until surgery done. CASSY MONTOYA Oct 08, 2018 16:34
[2018-10-08] MEDS ORDERED: LIDOCAINE 2% (SDV) 5 ML INJ ONE (16:37)
[2018-10-08] MEDS ORDERED: ROCURONIUM 50 MG INJ ONE (16:37)
[2018-10-08] MEDS ORDERED: PROPOFOL 20 ML ONE (16:37)
[2018-10-08] MEDS ORDERED: SUCCINYLCHOLINE CHLORIDE 100 MG/5 ML SYG IV ONE (16:37)
[2018-10-08] MEDS ORDERED: FENTAnyl 50 MCG/ML VIAL ONE (16:38)
[2018-10-08] MEDS ORDERED: MIDAZOLAM 1 MG/ML 2 ML INJ ONE (16:38)
[2018-10-08] MEDS ORDERED: ROPIVACAINE 0.5 % 30 ML VIAL ONE (16:41)
[2018-10-08] MEDS ORDERED: EPHEDrine 25 MG/5 ML SYG ONE (17:04)
[2018-10-08] MEDS ORDERED: ONDANSETRON 4 MG INJ ONE (17:04)
[2018-10-08] MEDS ORDERED: DEXAMETHASONE 4 MG/ML 5 ML INJ ONE (17:04)
[2018-10-08] MEDS ORDERED: FAMOTIDINE 20 MG INJ ONE (17:04)
[2018-10-08] MEDS ORDERED: KETOROLAC 30 MG INJ ONE (17:24)
[2018-10-08] MEDS ORDERED: SUGAMMADEX SODIUM 200 MG/2 ML VIAL IV ONE (17:25)
--- NOTE | 2018-10-08 17:45 | PAC ---
Date/Time of Note Date/Time of Note DATE: 10/08/18 TIME: 17:44 Post-Anesthesia Notes Post-Anesthesia Note Last documented vital signs Vital Signs Date Temp Pulse Resp B/P (MAP) Pulse Ox O2 O2 Flow FiO2 Time Delivery Rate 10/08/18 98.6 77 18 122/67 Room Air 15:35 (85) 10/08/18 99 13:39 Activity: WNL Respiratory function: WNL Cardiovascular function: WNL Mental status: Baseline Pain reasonably controlled: Yes Hydration appropriate: Yes Nausea/Vomiting absent: Yes Comments BP: 118/65 HR: 99 RR: 15 T: 98 SaO2: 100% ANGEL BECKHAM MD Oct 08, 2018 17:45
--- NOTE | 2018-10-08 17:52 | OPR ---
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 We discussed with the patient and the family possibility of the bleeding, infection, injury to other organs. Patient was brought to operating room positioned supine. General endotracheal anesthesia was induced. Abdomen was prepped and draped in the usual sterile fashion. Timeout was performed. Antibiotics were given previously. Through the small infraumbilical incision the Veress needle was placed and the abdomen was insufflated with CO2 up to 15 mmHg. Through the same incision 5 mm trocar was placed under direct control of the laparoscope. 2 additional trocars were placed in the midline, 12 mm trocar just above the pubis and 5 mm trocar midline between the pubis and the umbilicus. The appendix was visualized and was found to be acutely inflamed with phlegmon. The window was created using blunt dissection at the mesentery of the appendix next to the cecum and appendix was divided using endoscopic stapler with white load. The additional load of the same stapler was used to divide the mesentery. The hemostasis was confirmed. Local bleeding was controlled with the cautery. The abdomen was irrigated all the fluid was carefully sucked out. There is appendix was removed through the 12 mm trocar using Endocatch. The abdomen was desufflated all trocars were removed. The 12 mm trocar was closed in 2 layers using 0 Vicryl to the fascia and 4-0 Monocryl for the skin. The 5 mm trocars were closed just using 4-0 Monocryl to the skin. Patient tolerated procedure well was extubated transferred to recovery room. KALLI LORENZANA MD Oct 08, 2018 17:52
[2018-10-08] MEDS ORDERED: DIPHENHYDRAMINE 25 MG CAP PO PRN (18:00)
[2018-10-08] MEDS ORDERED: KETOROLAC 30 MG INJ IV PRN (18:00)
[2018-10-08] MEDS ORDERED: HYDROCODONE/APAP (5/325) TAB PO PRN (18:00)
[2018-10-08] MEDS ORDERED: HYDROmorphONE 0.5 MG/0.5 ML SYG IV PRN (18:00)
[2018-10-08] MEDS ORDERED: METOCLOPRAMIDE 10 MG INJ IV PRN (18:00)
[2018-10-08] MEDS: D5W-0.45 NACL + KCL 20 MEQ 1,000 ML IV SCH (19:03)
[2018-10-09] MEDS: PIPER-TAZO 3.375 GM IV (PMX) 100 ML IVPB SCH ×4 (00:20→18:20)
[2018-10-09 02:29] VITALS: BP 105/66; PULSE 100; RESP 17
[2018-10-09] MEDS: D5W-0.45 NACL + KCL 20 MEQ 1,000 ML IV SCH ×2 (03:52→20:22)
[2018-10-09 12:03] VITALS: BP 120/71; PULSE 99; RESP 16
--- NOTE | 2018-10-09 13:30 | PN ---
Date/Time of Note Date/Time of Note DATE: 10/09/18 TIME: 13:28 Objective Vitals Vital Signs Date Temp Pulse Resp B/P (MAP) Pulse Ox O2 O2 Flow FiO2 Time Delivery Rate 10/09/18 98.3 99 16 120/71 100 Room Air 12:03 (87) 10/08/18 6.0 17:45 Intake and Output 10/08/18 10/08/18 10/09/18 1515:00 23:00 07:00 IntakeIntake Total 200 ml 1950 ml 1050 ml OutputOutput Total 10 ml BalanceBalance 200 ml 1940 ml 1050 ml Results Result Diagram: 10/09/18 0456 10/09/18 0456 Medications Medications Current Medications IV Flush (NS 3 ml) 3 ml PER PROTOCOL IV ; Start 10/08/18 at 01:30 Ondansetron HCl (Zofran Inj) 4 mg Q6H PRN IV NAUSEA/VOMITING; Start 10/08/18 at 01:30 Morphine Sulfate (morphine) 3 mg Q4H PRN IV .SEVERE PAIN 4-10; Start 10/08/18 at 01:30 Piperacillin Sod/ Tazobactam Sod 100 ml @ 200 mls/hr Q6 IVPB Last administered on 10/09/18at 12:00; Admin Dose 200 MLS/HR; Start 10/08/18 at 09:00 Metoclopramide HCl (Reglan) 10 mg Q6H PRN IV NAUSEA AND/OR VOMITING; Start 10/08/18 at 18:00 Acetaminophen (Tylenol Tab) 650 mg Q6H PRN PO PAIN LEVEL 1-3 OR FEVER; Start 10/08/18 at 18:00 Ketorolac Tromethamine (Toradol) 30 mg Q6H PRN IV PAIN; Start 10/08/18 at 18:00; Stop 10/11/18 at 17:59 Hydromorphone HCl (Dilaudid) 0.5 mg Q4H PRN IV PAIN LEVEL 8-10; Start 10/08/18 at 18:00 Acetaminophen/ Hydrocodone Bitart (Ralls (5/325)) 1 tab Q6H PRN PO PAIN LEVEL 4-7 Last administered on 10/09/18at 11:32; Admin Dose 1 TAB; Start 10/08/18 at 18:00 Potassium Chloride/Dextrose/ Sod Cl 1,000 ml @ 50 mls/hr Q20H IV Last administ ered on 10/08/18at 19:03; Admin Dose 100 MLS/HR; Start 10/08/18 at 17:52 Diphenhydramine HCl (Benadryl) 25 mg Q6H PRN PO PRURITUS; Start 10/08/18 at 18:00 VTE Prophylaxis Risk score (from [facility])>0 risk: 2 SCD applied (from [facility]): Yes Lines/Catheters IV Catheter Type: Miranda in Place: No Assessment/Plan Hospital Course Subjective Patient doing well, has not passed gas yet Objective Physical exam General: Patient is laying in bed and answers questions appropriately Mentation: Patient is alert and oriented 4, Head: Normocephalic atraumatic Eyes: EOMI, pupils reactive to light Neck: Supple, nontender, midline Respiratory: Clear to auscultation bilaterally Cardiovascular: regular rate, no obvious murmurs Gastrointestinal: Minimally-tender to palpation, bowel sounds heard. Neurological: Moves all extremities spontaneously Skin: No new skin lesions Assessment and plan Acute appendicitis -Status post laparoscopic appendectomy -Monitor closely Leukocytosis -May be secondary to above appendicitis and laparoscopic appendectomy -We will be cautious, continue IV antibiotics, monitor overnight Disposition -Monitor overnight, repeat CBC in the a.m., continue IV antibiotic CASSY MONTOYA Oct 09, 2018 13:30
[2018-10-09 13:55] VITALS: BP 111/59; PULSE 100; RESP 15
--- NOTE | 2018-10-09 15:54 | PN ---
Date/Time of Note Date/Time of Note DATE: 10/09/18 TIME: 15:53 Assessment/Plan Lines/Catheters IV Catheter Type (from Nrs): Miranda in Place (from Nrs): No Subjective 24 Hr Interval Summary Patient is postoperative day #1 after laparoscopic appendectomy, uncomplicated. Patient is doing well. Tolerates diet. Ambulating. Stable afebrile. Them unremarkable. Patient can be safely discharged home on a regular diet.. Exam/Review of Systems Vital Signs Vitals Vital Signs Date Temp Pulse Resp B/P (MAP) Pulse Ox O2 O2 Flow FiO2 Time Delivery Rate 10/09/18 98.3 100 15 111/59 100 Room Air 13:55 (76) 10/08/18 6.0 17:45 Intake and Output 10/08/18 10/08/18 10/09/18 1515:00 23:00 07:00 IntakeIntake Total 200 ml 1950 ml 1050 ml OutputOutput Total 10 ml BalanceBalance 200 ml 1940 ml 1050 ml Results Result Diagram: 10/09/18 0456 10/09/18 0456 KALLI LORENZANA MD Oct 09, 2018 15:54
[2018-10-09 20:19] VITALS: BP 129/76; PULSE 93; RESP 16
[2018-10-10] MEDS: PIPER-TAZO 3.375 GM IV (PMX) 100 ML IVPB SCH ×2 (00:39→05:26)
[2018-10-10 01:59] VITALS: BP 103/58; PULSE 92; RESP 16
[2018-10-10 08:12] VITALS: BP 125/77; PULSE 79; RESP 17
[2018-10-10] MEDS ORDERED: DOCUSATE SODIUM 100 MG CAP PO SCH (10:00)
[2018-10-10] MEDS ORDERED: CIPROFLOXACIN 500 MG TAB PO SCH (10:00)
[2018-10-10] MEDS ORDERED: METR500T PO (12:34)
[2018-10-10] MEDS ORDERED: CIPR500T4 PO (12:34)
--- NOTE | 2018-10-10 12:34 | PDOCDIS ---
Discharge Instructions CONDITION [id number] Patient Condition: [id number] Stable FOLLOW UP/APPOINTMENTS Follow-up Plan 1. Please follow-up with your general surgeon, Dr. Edilson Yost, within 1 week for postoperative evaluation 2. Please finish antibiotics CASSY MONTOYA Oct 10, 2018 12:34
--- NOTE | 2018-10-10 12:37 | DS ---
Date/Time of Note Date/Time of Note DATE: 10/10/18 TIME: 12:37 Discharge Summary Admission/Discharge Info Admit Date/Time Oct 08, 2018 at 01:03 Discharge Date/Time Patient Condition: Stable Hospital Course Patient is a male with no significant past medical history who presents to [facility] for abdominal pain. Patient was diagnosed with acute appendicitis and was taken to surgery by general surgeon. Surgery was uneventful patient did well. However patient did develop a mild elevated white count and was continued on antibiotics and monitored overnight. Patient's white count resolved and will be discharged with a short course of antibiotics. Patient doing well, eating well, bowel movement and surgery has cleared for discharge. Patient will follow with surgeon within 1 week Discharge diagnosis Acute appendicitis, status post laparoscopic appendectomy Leukocytosis, resolved Home Meds Active Scripts Metronidazole* (Flagyl*) 500 Mg Tablet, 500 MG PO TID for 6 Days, #18 TAB Prov:CASSY MONTOYA 10/10/18 Ciprofloxacin Hcl* (Ciprofloxacin Hcl*) 500 Mg Tablet, 500 MG PO BID for 6 Days, #12 TAB Prov:CASSY MONTOYA 10/10/18 Reported Medications Finasteride* (Finasteride*) 1 Mg Tablet, 1 MG PO HS, TAB 10/08/18 Discontinued Scripts Diazepam* (Valium*) 5 Mg Tablet, 5 MG PO Q8, #10 TAB Prov:SAMAN,DEANA 10/08/16 Naproxen* (Naprosyn*) 500 Mg Tablet, 500 MG PO BID PRN for PAIN AND/OR INFL AMMATION, #30 TAB Prov:SAMAN,DEANA 10/08/16 Follow-up Plan 1. Please follow-up with your general surgeon, Dr. Edilson Yost, within 1 week for postoperative evaluation 2. Please finish antibiotics Primary Care Provider Emi Howe Time spent on discharge: > 30 minutes Pending Labs Laboratory Tests Test 10/10/18 05:20 White Blood Count 7.2 10^3/ul (4.8-10.8) Red Blood Count 3.74 10^6/ul (4.70-6.10) Hemoglobin 10.6 g/dl (14.0-18.0) Hematocrit 31.7 % (42.0-52.0) Mean Corpuscular Volume 84.8 fl (82.0-101.0) Mean Corpuscular Hemoglobin 28.3 pg (29.0-33.0) Mean Corpuscular Hemoglobin Concent 33.4 g/dl (32.0-37.0) Red Cell Distribution Width 13.5 % (11.5-14.5) Platelet Count 269 10^3/UL (140-415) Mean Platelet Volume 11.9 fl (7.4-10.4) Immature Granulocytes % 0.300 % (0.001-0.429) Neutrophils % 54.1 % (39.0-77.0) Lymphocytes % 33.8 % (15.0-51.0) Monocytes % 10.3 % (0.0-11.0) Eosinophils % 1.1 % (0.0-7.0) Basophils % 0.4 % (0.0-2.0) Nucleated Red Blood Cells % 0.0 /100WBC (0.0-0.0) Immature Granulocytes # 0.020 10^3/ul (0.0-0.031) Neutrophils # 3.9 10^3/ul (1.6-7.5) Lymphocytes # 2.4 10^3/ul (0.8-2.9) Monocytes # 0.7 10^3/ul (0.3-0.9) Eosinophils # 0.1 10^3/ul (0.0-0.5) Basophils # 0.0 10^3/ul (0.0-0.1) Nucleated Red Blood Cells # 0.0 10^3/ul (0.0-0.0) Sodium Level 143 mmol/L (135-144) Potassium Level 3.9 mmol/L (3.5-5.1) Chloride Level 105 mmol/L (97-110) Carbon Dioxide Level 32 mmol/L (21-31) Anion Gap 6 (5-13) Blood Urea Nitrogen 7 mg/dl (7-20) Creatinine 1.08 mg/dl (0.61-1.24) Est Glomerular Filtrat Rate mL/min > 60 mL/min (>60) Glucose Level 100 mg/dl (70-220) Calcium Level 8.5 mg/dl (8.4-10.2) Phosphorus Level 2.6 mg/dl (2.5-4.9) Magnesium Level 2.1 mg/dl (1.7-2.5) CASSY MONTOYA Oct 10, 2018 12:37
[2018-10-10] MEDS ORDERED: metroNIDAZOLE 500 MG TAB PO SCH ×2 (13:00→14:00)
== END 2018-10-10 13:10 | disposition home or self-care (01) | DRG 343 ==
LOC: E/R 20:31 → 2NE 10-08 01:03
PROVIDERS: ADMIT Internal Medicine; ATTEND Internal Medicine
PROC: 0DTJ4ZZ Resection of Appendix, Percutaneous Endoscopic Approach (ICD-10-PCS; principal; 2018-10-08 15:30)
DX: K35.80 Unspecified acute appendicitis (principal)
CPT/HCPCS: 36415; 74176; 80048; 80053; 83690; 83735; 84100; 85025; 88304; J0780; J1100; J1170; J1885; J2175; J2250; J2405; J2543; J2795; J3010; J3480; J7030; J7042

== ENCOUNTER 2018-10-13 09:11 | Emergency (ER) | payer BC ==
[~2018-10-13] VITALS: Ht 175.3 cm; Wt 73.2 kg
[~2018-10-13 09:11] MED LIST changes: +CIPR500T4 PO; -DIAZ5TAB PO; +FINA1TAB16 PO; +METR500T PO; -NAPR-985 PO
[2018-10-13 09:16] VITALS: Ht 175.3 cm; Wt 73.2 kg
[2018-10-13] MEDS ORDERED: SOD CHLORIDE 0.9% 500 ML IV STA (09:44)
--- NOTE | 2018-10-13 10:54 | ERD ---
ER Documentation Chief Complaint Chief Complaint ABD PAIN, DIZZINESS, SHIVERING LAST NIGHT, NAUSEA, RECENT APPY SURG 10-10-18 HPI 47-year-old male presents the emergency department complaining of abdominal pain, dizziness and shivering. Patient is recently status post an appendectomy on 10 October. Prior to having his appendectomy, he had similar type symptoms of what he is describing today. He reports that he is taking his medications including his outpatient antibiotics. He states he is having normal bowel movements and is having no nausea. Over the last 24 hours she has had what he describes as a wave of nonspecific visceral abdominal discomfort and a feeling of lightheadedness and dizziness and a shivering that lasts for just a couple of minutes. This is then associated with nausea, but no anorexia. The symptoms have resolved. Currently he is asymptomatic. ROS All systems reviewed and are negative except as per history of present illness. Medications Home Meds Active Scripts Metronidazole* (Flagyl*) 500 Mg Tablet, 500 MG PO TID for 6 Days, #18 TAB Prov:CASSY MONTOYA 10/10/18 Ciprofloxacin Hcl* (Ciprofloxacin Hcl*) 500 Mg Tablet, 500 MG PO BID for 6 Days, #12 TAB Prov:CASSY MONTOYA 10/10/18 Reported Medications Finasteride* (Finasteride*) 1 Mg Tablet, 1 MG PO HS, TAB 10/08/18 Discontinued Scripts Diazepam* (Valium*) 5 Mg Tablet, 5 MG PO Q8, #10 TAB Prov:SAMAN,DEANA 10/08/16 Naproxen* (Naprosyn*) 500 Mg Tablet, 500 MG PO BID PRN for PAIN AND/OR INFLAMMATION, #30 TAB Prov:SAMAN,DEANA 10/08/16 Allergies Allergies: Coded Allergies: No Known Drug Allergies (Verified Allergy, Unknown, 10/07/16) PMhx/Soc History of Surgery: Yes (APPY ) Anesthesia Reaction: No Hx Neurological Disorder: No Hx Respiratory Disorders: No Hx Cardiac Disorders: No Hx Psychiatric Problems: No Hx Miscellaneous Medical Probl: No Hx Alcohol Use: No Hx Substance Use: No Hx Tobacco Use: No Smoking Status: Never smoker Physical Exam Vitals Vital Signs Date Temp Pulse Resp B/P (MAP) Pulse Ox O2 O2 Flow FiO2 Time Delivery Rate 10/13/18 97.6 82 17 118/73 99 09:16 (88) Physical Exam GENERAL: The patient is well developed and appropriate for usual state of health in no apparent distress HEENT: Pupils equal, round, and reactive to light. EOMI. There is no scleral icterus. NECK: C-spine is soft and supple, there is no meningismus. There is no cervical lymphadenopathy. LUNGS: Clear to auscultation bilaterally. There are no rales, wheezes or rhonchi. HEART: Regular rate and rhythm, no murmurs, clicks, rubs or gallops. ABDOMEN: Soft, non-tender, non-distended. There are bowel sounds in all four quadrants. No rebound or guarding. Surgical wounds appear to be healing nicely EXTREMITIES: There is no peripheral cyanosis or edema. No focal swelling or erythema. NEURO: The patient moves all four extremities with 5/5 strength. Cranial nerves II - XII are intact. Normal gait. Alert and oriented SKIN: There is no apparent rash or petechiae. HEME/LYMPHATIC: There is no evidence of excessive bruising or lymphedema. PSYCHIATRIC: The patient does not appear anxious or depressed. Result Diagram: 10/13/18 0957 10/13/18 0957 Results 24 hrs Laboratory Tests Test 10/13/18 09:54 10/13/18 09:57 Bedside Glucose 105 mg/dL White Blood Count 6.3 10^3/ul Red Blood Count 4.59 10^6/ul Hemoglobin 12.9 g/dl Hematocrit 38.7 % Mean Corpuscular Volume 84.3 fl Mean Corpuscular Hemoglobin 28.1 pg Mean Corpuscular Hemoglobin Concent 33.3 g/dl Red Cell Distribution Width 13.6 % Platelet Count 331 10^3/UL Mean Platelet Volume 11.3 fl Immature Granulocytes % 0.200 % Neutrophils % 64.7 % Lymphocytes % 23.8 % Monocytes % 7.5 % Eosinophils % 3.0 % Basophils % 0.8 % Nucleated Red Blood Cells % 0.0 /100WBC Immature Granulocytes # 0.010 10^3/ul Neutrophils # 4.1 10^3/ul Lymphocytes # 1.5 10^3/ul Monocytes # 0.5 10^3/ul Eosinophils # 0.2 10^3/ul Basophils # 0.1 10^3/ul Nucleated Red Blood Cells # 0.0 10^3/ul Sodium Level 143 mmol/L Potassium Level 4.7 mmol/L Chloride Level 104 mmol/L Carbon Dioxide Level 32 mmol/L Anion Gap 7 Blood Urea Nitrogen 11 mg/dl Creatinine 0.95 mg/dl Est Glomerular Filtrat Rate mL/min > 60 mL/min Glucose Level 105 mg/dl Calcium Level 9.3 mg/dl Troponin I < 0.012 ng/ml Current Medications Medications Dose Sig/Yumiko Start Time Status Last (Trade) Ordered Route PRN Stop Time Admin Dose Reason Admin Sodium 500 ml @ Q1H STAT 10/13/18 DC 10/13/18 Chloride 500 mls/hr IV 09:44 10/13/18 10:01 10:43 Procedures/MDM Patient was taken to a room, seen and evaluated. Comfort measures were initiated. Diagnostic tests were ordered and reviewed. 3 LEAD RHYTHM STRIP: Normal sinus rhythm without ectopy EK lead EKG reviewed by myself: Normal Sinus Rhythm Normal [place] and intervals No ST elevation, depression, or T wave inversion Impression: Normal EKG RADIOLOGY: Reviewed with the radiologist REEVALUATION: 1050: Diagnostic tests were appreciated. Patient remained completely normal in appearance and asymptomatic MEDICAL DECISION MAKIN-year-old male presents the emergency department with nonspecific postoperative symptoms. Patient appears to be clinically nontoxic at this time with no signs of cardiac concerns, infectious concerns or abdominal concerns. Patient appears to be clinically well at this time and appropriate for discharge. Departure Diagnosis: Primary Impression: Multiple complaints Condition: Stable Patient Instructions: Post Op Wound Check, Pain Referrals: MCKAYLA XIAO (PCP) Additional Instructions: See your doctor for follow-up as discussed. Take a copy of your test results, if appropriate, to this follow-up visit. See your doctor or return here if your symptoms do not improve as expected. At any time, please return to the emergency department for any change or worsening in her symptoms. PAPO NARAYAN Oct 13, 2018 10:54
[2018-10-13 11:03] VITALS: BP 109/78; PULSE 78; RESP 18
== END 2018-10-13 11:04 | disposition home or self-care (01) ==
LOC: E/R 09:11
DX: R10.9 Unspecified abdominal pain (principal); R42 Dizziness and giddiness; R11.0 Nausea
CPT/HCPCS: 36415; 71045; 80048; 82962; 84484; 85025; 93005; 96360; 99285; J7040